=== PATIENT | female | born 1975 | race Caucasian/White ===

== ENCOUNTER 2023-05-15 15:41 | Outpatient (CLI) | payer OTHER, SELFPAY | END 2023-05-15 15:42 | disposition home or self-care (01) | PROVIDERS: PCP Family Medicine; Referring Provider Family Medicine; Visit Provider Physician Assistant | DX: N30.90 Cystitis, unspecified without hematuria (principal); K59.00 Constipation, unspecified | CPT/HCPCS: 87086; 87186 ==